=== PATIENT | male | born 1945 | race Asian ===

== ENCOUNTER → 2016-08-04 | Outpatient (CLI) | payer MEDICARE, OTHER ==
[2016-08-04 12:28] LABS: APPEARANCE,URINE CLEAR (CLEAR); GLUCOSE, URINE (UA) NEGATIVE (NEGATIVE); KETONES,URINE NEGATIVE (NEGATIVE); LEUKOCYTE ESTERASE ,URINE NEGATIVE (NEGATIVE); OCCULT BLOOD,URINE NEGATIVE (NEGATIVE); PH,URINE 6.5 (5.0-8.0); PROTEIN,URINE NEGATIVE (NEGATIVE)
[2016-08-04 12:29] LABS: BASOPHILS % (AUTO) 0.6 % (0.0-2.0); HEMATOCRIT 45.6 % (41-53); HEMOGLOBIN 15.1 g/dL (13.5-17.5); LYMPHOCYTES # (AUTO) 1.5 K/uL (1.0-4.8); LYMPHOCYTES % (AUTO) 25.2 % (22.0-44.0); MEAN CORPUSCULAR HEMOGLOBIN 31.8 pg (26.0-34.0); MEAN CORPUSCULAR HGB CONC 33.2 G/dL (31.0-37.0); MEAN CORPUSCULAR VOLUME 96 fL (80-100); MONOCYTES # (AUTO) 0.5 K/uL (0.1-1.0); MONOCYTES % (AUTO) 7.7 % (2.0-9.0); NEUTROPHILS # (AUTO) 3.8 K/uL (1.8-7.7); NEUTROPHILS % (AUTO) 63.5 % (40.0-70.0); PLATELET COUNT (AUTO) 221 K/uL (150-450); RED BLOOD CELL COUNT(AUTO) 4.75 MIL/uL (4.50-5.90); RED CELL DISTRIBUTION WIDTH 12.9 % (11.5-14.5)
[2016-08-04 12:31] LABS: ANION GAP 6 mmol/L (8-16); CARBON DIOXIDE 31 mmol/L (22-29); CHLORIDE 103 mmol/L (98-107); CREATININE 0.76 mg/dL (0.60-1.30); GLOMERULAR FILTR. RATE CALC > 60 mL/min (>60); POTASSIUM 4.3 mmol/L (3.5-5.1); SODIUM SERUM 140 mmol/L (136-145); UREA NITROGEN, BLOOD 11 mg/dL (7-18)
[2016-08-04 12:34] LABS: PROTHROMBIN TIME 10.3 SEC (9.4-11.6)
[2016-08-04 12:36] LABS: HEMOGLOBIN A1C 6.8 % (4.5-6.2)
[2016-08-04 13:00] LABS: ADD UA MICROSCOPIC NO
== END | disposition home or self-care (01) ==
LOC: MSR 09:59
DX: M76.61 Achilles tendinitis, right leg (principal); G57.61 Lesion of plantar nerve, right lower limb; I70.8 Atherosclerosis of other arteries
CPT/HCPCS: 82565; 83036; 84520; 93005

== ENCOUNTER 2016-08-11 05:32 | Day surgery (SDC) | payer MEDICARE, OTHER ==
[~2016-08-11] VITALS: Ht 170.2 cm; Wt 77.7 kg
[2016-08-11] MEDS ORDERED: RINGERS SOLUTION,LACTATED 1,000 ML IV ONE ×3 (05:53→08:13)
[2016-08-11] MEDS ORDERED: LIDOCAINE HCL/PF 2% 5 ML VIAL ONE (06:48)
[2016-08-11] MEDS ORDERED: BUPIVACAINE HCL/PF 0.5% 30 ML VIAL ONE (06:48)
[2016-08-11] MEDS ORDERED: AMLO-512 PO (07:04)
[2016-08-11] MEDS ORDERED: ASPI-1061 PO (07:04)
[2016-08-11] MEDS ORDERED: TAMS0.4C32 PO (07:04)
[2016-08-11] MEDS ORDERED: DIPH25 PO (07:04)
[2016-08-11] MEDS ORDERED: ATOR40TA28 PO (07:04)
[2016-08-11] MEDS ORDERED: HYD25 PO (07:04)
[2016-08-11] MEDS ORDERED: METF500T4 PO (07:04)
[2016-08-11] MEDS ORDERED: GABA-531 PO (07:04)
[2016-08-11] MEDS ORDERED: TELM40 PO (07:04)
[2016-08-11] MEDS ORDERED: ESOM20CA31 PO (07:04)
[2016-08-11 07:11] LABS: GLUCOSE COMMENT 1 Doctor Notified; GLUCOSE,POINT OF CARE 147 MG/DL (70-110)
[2016-08-11] MEDS ORDERED: POVIDONE-IODINE 30 GM OINTMENT TP ONE (07:59)
[2016-08-11] MEDS ORDERED: MEPERIDINE-PF 25 MG/ML SYRINGE IVP PRN (08:00)
[2016-08-11] MEDS ORDERED: HYDROmorphone 2 MG/ML SYRINGE IVP PRN (08:00)
[2016-08-11] MEDS ORDERED: OXYGEN THERAPY IH SCH (08:00)
[2016-08-11] MEDS ORDERED: FentaNYL CITRATE-PF 100 MCG/2 ML VIAL IVP PRN (08:00)
[2016-08-11] MEDS ORDERED: [UNRECOGNIZED DRUG - OTHER] IV ONE (12:00)
[2016-08-11] MEDS ORDERED: EPHEDrine SULFATE 50 MG/ML VIAL IM ONE (12:00)
[2016-08-11] MEDS ORDERED: ONDANSETRON HCL 4 MG/2 ML VIAL IVP ONE (12:00)
[2016-08-11] MEDS ORDERED: FentaNYL CITRATE-PF 100 MCG/2 ML VIAL IVP ONE (12:00)
[2016-08-11] MEDS ORDERED: MIDAZOLAM HCL 2 MG/2 ML VIAL IVP ONE (12:00)
[2016-08-11] MEDS ORDERED: LIDOCAINE HCL/PF 2% 5 ML VIAL INJ ONE (12:00)
[2016-08-11] MEDS ORDERED: PHENYLEPHRINE HCL 10 MG/ML VIAL IVP ONE (12:00)
[2016-08-11] MEDS ORDERED: PROPOFOL IV ONE (12:00)
[2016-08-11] MEDS ORDERED: KETOROLAC TROMETHAMINE 60 MG/2 ML VIAL IM ONE (12:00)
== END 2016-08-11 10:40 | disposition home or self-care (01) ==
LOC: SURGERY 05:32
DX: M20.41 Other hammer toe(s) (acquired), right foot (principal); G57.81 Other specified mononeuropathies of right lower limb; E11.9 Type 2 diabetes mellitus without complications; I10 Essential (primary) hypertension; E78.00 Pure hypercholesterolemia, unspecified
CPT/HCPCS: 28285; 64776; 73630; 82962; J0690; J1885; J2250; J2370; J2405; J2704; J3010; J3490 ×3; J7120; 88304; 88311

== ENCOUNTER → 2016-12-19 | Outpatient (CLI) | payer MEDICARE, OTHER ==
[~2016-12-19] MED LIST: AMLO-512 PO; ASPI-1061 PO; ATOR40TA28 PO; DIPH25 PO; ESOM20CA31 PO; GABA-531 PO; HYD25 PO; METF500T4 PO; TAMS0.4C32 PO; TELM40 PO
[2016-12-19 13:24] LABS: BASOPHILS # (AUTO) 0.02 K/uL (0.00-0.20); BASOPHILS % (AUTO) 0.3 % (0.0-2.0); EOSINOPHILS # (AUTO) 0.14 K/uL (0.00-0.70); EOSINOPHILS % (AUTO) 2.22 % (1.0-6.0); HEMATOCRIT 42.4 % (41-53); HEMOGLOBIN 14.1 g/dL (13.5-17.5); LYMPHOCYTES # (AUTO) 1.8 K/uL (1.0-4.8); LYMPHOCYTES % (AUTO) 28.2 % (22.0-44.0); MEAN CORPUSCULAR HEMOGLOBIN 32.3 pg (26.0-34.0); MEAN CORPUSCULAR HGB CONC 33.4 G/dL (31.0-37.0); MEAN CORPUSCULAR VOLUME 97 fL (80-100); MONOCYTES # (AUTO) 0.4 K/uL (0.1-1.0); MONOCYTES % (AUTO) 6.6 % (2.0-9.0); NEUTROPHILS % (AUTO) 62.8 % (40.0-70.0); PLATELET COUNT (AUTO) 223 K/uL (150-450); RED BLOOD CELL COUNT(AUTO) 4.37 MIL/uL (4.50-5.90); RED CELL DISTRIBUTION WIDTH 12.8 % (11.5-14.5); WHITE BLOOD COUNT (AUTO) 6.4 K/uL (4.5-11.0)
[2016-12-19 13:35] LABS: ADD UA MICROSCOPIC NO; APPEARANCE,URINE CLEAR (CLEAR); GLUCOSE, URINE (UA) NEGATIVE (NEGATIVE); KETONES,URINE NEGATIVE (NEGATIVE); LEUKOCYTE ESTERASE ,URINE NEGATIVE (NEGATIVE); OCCULT BLOOD,URINE NEGATIVE (NEGATIVE); PROTEIN,URINE NEGATIVE (NEGATIVE)
[2016-12-19 13:36] LABS: ANION GAP 9 mmol/L (8-16); CARBON DIOXIDE 28 mmol/L (22-29); CHLORIDE 103 mmol/L (98-107); CREATININE 0.85 mg/dL (0.60-1.30); GLOMERULAR FILTR. RATE CALC > 60 mL/min (>60); POTASSIUM 4.3 mmol/L (3.5-5.1); SODIUM SERUM 140 mmol/L (136-145); UREA NITROGEN, BLOOD 11 mg/dL (7-18)
[2016-12-19 13:52] LABS: PROTHROMBIN TIME 10.2 SEC (9.4-11.6)
== END | disposition home or self-care (01) ==
LOC: LABPV 12:01
DX: M20.41 Other hammer toe(s) (acquired), right foot (principal); R79.1 Abnormal coagulation profile
CPT/HCPCS: 82565; 84520

== ENCOUNTER → 2017-05-23 | Outpatient (CLI) | payer MEDICARE, OTHER ==
[~2017-05-23] MED LIST changes: -ASPI-1061 PO; -ESOM20CA31 PO; -HYD25 PO; +LORA10TA7 PO; -TAMS0.4C32 PO
== END | disposition home or self-care (01) ==
LOC: RADPV 15:02
PROVIDERS: ATTEND Family Medicine
DX: R05 Cough (principal); I70.0 Atherosclerosis of aorta
CPT/HCPCS: 71046

== ENCOUNTER → 2018-01-30 | Outpatient (CLI) | payer MEDICARE, OTHER ==
[~2018-01-30] MED LIST changes: +METF-960 PO; -METF500T4 PO
== END | disposition home or self-care (01) ==
LOC: RADMN 08:41
PROVIDERS: ATTEND Internal Medicine
DX: M47.812 Spondylosis without myelopathy or radiculopathy, cervical region (principal); M48.02 Spinal stenosis, cervical region
CPT/HCPCS: 72141

== ENCOUNTER → 2018-08-09 | Outpatient (CLI) | payer MEDICARE, OTHER ==
[~2018-08-09] VITALS: Ht 167.6 cm; Wt 69.5 kg
[~2018-08-09] MED LIST changes: -AMLO-512 PO; -ATOR40TA28 PO; -DIPH25 PO; +FINA5TAB41 PEG; -GABA-531 PO; +INSLAN SQ; +LANS30 PEG; +LEVE500S9 PEG; -LORA10TA7 PO; +METF-960 PEG; -METF-960 PO; +MULT1TAB28 PEG; +OLOP5DRO15 OU; +POLY17PO PEG; +ROPI0.257 PEG; +ROSU20TA23 PEG; +SCOP1PAT11 TD; -TELM40 PO; +TEMA7.5C17 PEG; +VITAD400 PEG; +[UNRECOGNIZED DRUG - OTHER] PEG
[2018-08-09 14:46] VITALS: BP 120/66
== END | disposition home or self-care (01) ==
LOC: SRCNTR 14:35
PROVIDERS: ATTEND Internal Medicine Critical Care Medicine
DX: I10 Essential (primary) hypertension (principal); E78.5 Hyperlipidemia, unspecified; E11.9 Type 2 diabetes mellitus without complications; Z93.0 Tracheostomy status
CPT/HCPCS: G0463

== ENCOUNTER → 2018-10-03 | Outpatient (CLI) | payer MEDICARE, OTHER | END | disposition home or self-care (01) | LOC: RADPV 09:23 | PROVIDERS: ATTEND Physical Medicine & Rehabilitation | DX: R13.10 Dysphagia, unspecified (principal) | CPT/HCPCS: 74230; 92611 ==

== ENCOUNTER → 2020-07-23 | Outpatient (CLI) | payer MEDICARE, OTHER ==
[~2020-07-23] MED LIST changes: +CHOL400T56 PEG; +FINA-27 PEG; -FINA5TAB41 PEG; -LANS30 PEG; +LANS30CA56 PEG; -VITAD400 PEG
== END | disposition home or self-care (01) ==
LOC: RADPV 08:26
PROVIDERS: ATTEND Internal Medicine
DX: E04.2 Nontoxic multinodular goiter (principal); E03.9 Hypothyroidism, unspecified
CPT/HCPCS: 76536

== ENCOUNTER → 2022-03-30 | Outpatient (CLI) | payer MEDICARE, OTHER ==
[~2022-03-30] MED LIST changes: +METF-1211 PEG; -METF-960 PEG; -ROSU20TA23 PEG; +ROSU20TA73 PEG; -SCOP1PAT11 TD; +SCOP1PAT12 TD; -TEMA7.5C17 PEG; +TEMA7.5C26 PEG
== END | disposition home or self-care (01) ==
LOC: RADMN 03-28 13:27
PROVIDERS: ATTEND Specialist
DX: S72.431A Displaced fracture of medial condyle of right femur, initial encounter for closed fracture (principal); M25.761 Osteophyte, right knee; X58.XXXA Exposure to other specified factors, initial encounter; Y93.89 Activity, other specified; Y92.89 Other specified places as the place of occurrence of the external cause; Y99.8 Other external cause status
CPT/HCPCS: 73700

== ENCOUNTER → 2022-09-13 | Outpatient (CLI) | payer MEDICARE, OTHER ==
[~2022-09-13] MED LIST changes: +LEVE500S10 PEG; -LEVE500S9 PEG
== END | disposition home or self-care (01) ==
LOC: RADPV 09:27
PROVIDERS: ATTEND Internal Medicine
DX: I86.1 Scrotal varices (principal); N50.819 Testicular pain, unspecified
CPT/HCPCS: 76870

== ENCOUNTER 2023-08-07 12:44 | Emergency (ER) | payer MEDICARE, OTHER ==
[~2023-08-07] VITALS: Ht 172.7 cm; Wt 69.5 kg
[~2023-08-07 12:44] MED LIST changes: +LANS-78 PEG; -LANS30CA56 PEG; -POLY17PO PEG; +POLY17PO11 PEG; +ROPI PEG; -ROPI0.257 PEG
[2023-08-07 12:55] VITALS: TEMP 97.9
[2023-08-07] MEDS ORDERED: TELM20TA8 PO (14:56)
[2023-08-07] MEDS ORDERED: AZEL137S8 NASAL (14:56)
[2023-08-07] MEDS ORDERED: METF-445 PO (14:56)
[2023-08-07] MEDS ORDERED: LORA10TA7 PO (14:56)
[2023-08-07] MEDS ORDERED: LEVO150 PO (14:56)
[2023-08-07] MEDS ORDERED: OLOP5DRO27 OU (14:56)
[2023-08-07] MEDS ORDERED: ROSU40TA70 PO (14:56)
[2023-08-07] MEDS ORDERED: AMLO10TA55 PO (14:56)
[2023-08-07] MEDS ORDERED: TICA90TA PO (14:56)
[2023-08-07] MEDS ORDERED: SILD100T71 PO (14:56)
[2023-08-07] MEDS ORDERED: EMPA10TA3 PO (14:56)
[2023-08-07] MEDS ORDERED: OMEP20CA12 PO (14:56)
[2023-08-07] MEDS: PERTUSS(ACELL),DIPH,TET/PF 0.5 ML SYRINGE [ADULT] IM. ONE (14:57)
[2023-08-07 17:03] VITALS: BP 130/72; PULSE 80; RESP 16
== END 2023-08-07 17:15 | disposition home or self-care (01) ==
LOC: EMS 12:44
DX: S00.83XA Contusion of other part of head, initial encounter (principal); S00.81XA Abrasion of other part of head, initial encounter; E11.9 Type 2 diabetes mellitus without complications; I10 Essential (primary) hypertension; W19.XXXA Unspecified fall, initial encounter; Y93.89 Activity, other specified; Y92.89 Other specified places as the place of occurrence of the external cause; Y99.8 Other external cause status
CPT/HCPCS: 70450; 90471; 90715; 99285